=== PATIENT | female | born 1970 | race Asian ===

== ENCOUNTER 2017-02-07 10:10 | Emergency (ER) | payer OTHER ==
[~2017-02-07] VITALS: Ht 162.6 cm; Wt 62.6 kg
[~2017-02-07 10:10] MED LIST: ALBUAER5 INH; ALPR0.2566 PO; AMITRIPTYLIN50 MG OR; AMLO2.5T PO; AROMASIN25 MG PO; CELEXA10 MG OR; CLARITIN10 M1 PO; DICL1GEL2 TOP; HEARTBURN150 MG PO; HYDR-2748 PO; LIDO/PRILOCN1 CRE EX; LISI10TA11 PO; OMEP20CA PO; RANI150T78 PO; TAMOXIFEN20 MG OR; TRAM50TA PO; VENLAFAXINE37.5 ER OR
[2017-02-07 10:38] VITALS: BP 150/85; TEMP 98.4
== END 2017-02-07 10:40 | disposition home or self-care (01) ==
LOC: ED 10:10
DX: K02.9 Dental caries, unspecified (principal); K04.7 Periapical abscess without sinus; K08.89 Other specified disorders of teeth and supporting structures
CPT/HCPCS: 99281

== ENCOUNTER 2019-01-20 10:43 | Outpatient (CLI) | payer OTHER | END 2019-01-20 23:52 | disposition home or self-care (01) | LOC: MAMMO 10:43 | DX: Z85.3 Personal history of malignant neoplasm of breast (principal) ==

== ENCOUNTER 2019-02-02 12:08 | Emergency (ER) | payer OTHER ==
[~2019-02-02] VITALS: Ht 162.6 cm; Wt 74.8 kg
[2019-02-02 12:20] VITALS: TEMP 98.1
[2019-02-02 13:40] VITALS: BP 85/45
== END 2019-02-02 13:53 | disposition home or self-care (01) ==
LOC: ED 12:08
DX: S81.821A Laceration with foreign body, right lower leg, initial encounter (principal); S91.021A Laceration with foreign body, right ankle, initial encounter; L03.115 Cellulitis of right lower limb; F19.129 Other psychoactive substance abuse with intoxication, unspecified; F10.129 Alcohol abuse with intoxication, unspecified
CPT/HCPCS: 87070; 87205; 90471; 90715; 96372; 99283; J0696; J1885

== ENCOUNTER 2019-02-16 11:23 | Emergency (ER) | payer OTHER ==
[~2019-02-16] VITALS: Ht 162.6 cm; Wt 74.8 kg
[2019-02-16 11:28] VITALS: TEMP 101.1
[2019-02-16 13:50] VITALS: BP 132/74
== END 2019-02-16 13:50 | disposition home or self-care (01) ==
LOC: ED 11:23
DX: B34.9 Viral infection, unspecified (principal)
CPT/HCPCS: 87502; 87651; 99283

== ENCOUNTER 2019-12-16 10:08 | Outpatient (CLI) | payer OTHER | END 2019-12-16 10:11 | disposition short-term general hospital (02) | LOC: AMB 10:08 | DX: R07.9 Chest pain, unspecified (principal); F41.9 Anxiety disorder, unspecified | CPT/HCPCS: A0425; A0427 ==

== ENCOUNTER 2019-12-16 10:13 | Emergency (ER) | payer OTHER ==
[~2019-12-16] VITALS: Ht 162.6 cm; Wt 70.8 kg
[2019-12-16 10:13] VITALS: TEMP 97.7
[2019-12-16 10:43] LABS: PLATELET COUNT 216 K/uL (152-353)
[2019-12-16 10:47] LABS: POTASSIUM 2.9 mmol/L (3.6-5.2); SODIUM 140 mmol/L (136-145)
[2019-12-16 18:00] VITALS: BP 120/57
== END 2019-12-16 18:26 | disposition short-term general hospital (02) ==
LOC: ED 10:20
PROVIDERS: Emergency Medicine
DX: I21.4 Non-ST elevation (NSTEMI) myocardial infarction (principal); R79.89 Other specified abnormal findings of blood chemistry; F17.210 Nicotine dependence, cigarettes, uncomplicated
CPT/HCPCS: 80053; 80307; 81000; 82550; 82553; 84484; 85027; 87077; 87086; 87088; 87186; 93005; 99284

== ENCOUNTER 2019-12-16 18:31 | Outpatient (CLI) | payer OTHER | END 2019-12-16 19:12 | disposition short-term general hospital (02) | LOC: AMB 18:31 | DX: R07.9 Chest pain, unspecified (principal); R79.89 Other specified abnormal findings of blood chemistry; I21.4 Non-ST elevation (NSTEMI) myocardial infarction | CPT/HCPCS: A0425; A0427 ==

== ENCOUNTER 2020-08-01 14:29 | Emergency (ER) | payer OTHER ==
[~2020-08-01] VITALS: Ht 162.6 cm; Wt 62.6 kg
[2020-08-01 15:01] LABS: PLATELET COUNT 233 K/uL (152-353)
[2020-08-01 15:09] LABS: POTASSIUM 3.2 mmol/L (3.6-5.2); SODIUM 140 mmol/L (136-145)
[2020-08-01 15:19] LABS: PARTIAL THROMBOPLASTIN TIME 24.5 SECONDS (24.5-33.6)
[2020-08-01 16:25] VITALS: BP 125/81
== END 2020-08-01 16:25 | disposition home or self-care (01) ==
LOC: ED 14:29
PROVIDERS: Hospitalist
DX: R07.89 Other chest pain (principal); J06.9 Acute upper respiratory infection, unspecified; Z20.828 Contact with and (suspected) exposure to other viral communicable diseases; F17.210 Nicotine dependence, cigarettes, uncomplicated
CPT/HCPCS: 36415; 80053; 82550; 82553; 83880; 84484; 85027; 85379; 85610; 85730; 87635; 87651; 93005; 96374; 96375; 99283; 99284; J1100; J1885; U0003

== ENCOUNTER 2020-10-26 15:17 | Outpatient (CLI) | payer OTHER | END 2020-10-26 21:10 | disposition home or self-care (01) | LOC: RAD 15:17 | PROVIDERS: ATTEND Nurse Practitioner Family | DX: J45.909 Unspecified asthma, uncomplicated (principal) ==

== ENCOUNTER 2020-11-30 13:49 | Outpatient (CLI) | payer OTHER | END 2020-11-30 19:44 | disposition home or self-care (01) | LOC: MAMMO 13:49 | PROVIDERS: ATTEND Nurse Practitioner Family | DX: Z00.00 Encounter for general adult medical examination without abnormal findings (principal); Z85.3 Personal history of malignant neoplasm of breast | CPT/HCPCS: G0279 ==

== ENCOUNTER 2020-12-14 16:32 | Outpatient (CLI) | payer OTHER | END 2020-12-14 21:55 | disposition home or self-care (01) | LOC: RAD 16:32 | PROVIDERS: ATTEND Family Medicine | DX: M54.5 Low back pain (principal) ==

== ENCOUNTER 2021-02-04 11:15 | Emergency (ER) | payer OTHER ==
[~2021-02-04] VITALS: Ht 162.6 cm; Wt 68.0 kg
[2021-02-04 11:24] VITALS: TEMP 98.2
[2021-02-04 13:22] LABS: PLATELET COUNT 217 K/uL (152-353)
[2021-02-04 13:36] LABS: POTASSIUM 3.3 mmol/L (3.6-5.2)
[2021-02-04 14:26] VITALS: BP 158/98
== END 2021-02-04 14:38 | disposition home or self-care (01) ==
LOC: ED 11:15
PROVIDERS: Emergency Medicine Emergency Medical Services
DX: R10.2 Pelvic and perineal pain (principal); C80.1 Malignant (primary) neoplasm, unspecified
CPT/HCPCS: 80053; 80307; 84550; 85027; 96372; 99283; J2270; J2550

== ENCOUNTER 2021-05-13 16:05 | Emergency (ER) | payer OTHER ==
[2021-05-22 08:46] LABS: PLATELET COUNT 218 K/uL (152-353)
[2021-05-22 08:47] LABS: POTASSIUM 3.4 mmol/L (3.6-5.2)
== END 2021-05-13 22:10 | disposition home or self-care (01) ==
LOC: ED 16:05
PROVIDERS: Family Medicine
DX: C50.919 Malignant neoplasm of unspecified site of unspecified female breast (principal); C79.51 Secondary malignant neoplasm of bone; N39.0 Urinary tract infection, site not specified; M54.5 Low back pain
CPT/HCPCS: 36415; 80053; 81000; 85027; 87077; 87086; 87088; 87186; 93005; 96372; 99283; J1885

== ENCOUNTER 2021-08-13 23:25 | Emergency (ER) | payer OTHER ==
[~2021-08-13] VITALS: Ht 33 cm; Wt 0.5 kg
[2021-08-14 00:19] LABS: PARTIAL THROMBOPLASTIN TIME 25.4 SECONDS (24.5-33.6); POTASSIUM 3.3 mmol/L (3.6-5.2); SODIUM 138 mmol/L (136-145)
[2021-08-14 00:43] LABS: PLATELET COUNT 238 K/uL (152-353)
[2021-08-14 02:00] VITALS: BP 119/78; TEMP 98.1
== END 2021-08-14 02:00 | disposition home or self-care (01) ==
LOC: ED 23:25
PROVIDERS: Hospitalist
DX: I47.1 Supraventricular tachycardia (principal); C50.919 Malignant neoplasm of unspecified site of unspecified female breast; C79.9 Secondary malignant neoplasm of unspecified site; Z20.822 Contact with and (suspected) exposure to COVID-19
CPT/HCPCS: 36415; 80053; 80320; 82550; 83880; 84484; 85027; 85610; 85730; 87635; 93005; 96360; 96361; 96375; 99284; J0153; J2405; U0003

== ENCOUNTER 2021-10-21 10:50 | Emergency (ER) | payer OTHER ==
[~2021-10-21] VITALS: Ht 154.9 cm; Wt 57.2 kg
[2021-10-21 11:26] LABS: PLATELET COUNT 330 K/uL (152-353)
[2021-10-21 11:55] LABS: PARTIAL THROMBOPLASTIN TIME 24.3 SECONDS (24.5-33.6)
[2021-10-21 15:00] VITALS: BP 115/88
== END 2021-10-21 16:23 | disposition short-term general hospital (02) ==
LOC: ED 10:50
PROVIDERS: Emergency Medicine
DX: R06.09 Other forms of dyspnea (principal); R79.89 Other specified abnormal findings of blood chemistry; E87.6 Hypokalemia; Z11.52 Encounter for screening for COVID-19
CPT/HCPCS: 36415; 80053; 83880; 84484; 85027; 85379; 85610; 85730; 87635; 93005; 96365; 96375; 99285; J1644; J1940; Q9963; U0003

== ENCOUNTER 2022-01-21 12:12 | Emergency (ER) | payer OTHER ==
[~2022-01-21] VITALS: Ht 154.9 cm; Wt 57.2 kg
[2022-01-21 12:15] VITALS: TEMP 98
[2022-01-21 13:15] VITALS: BP 116/81
== END 2022-01-21 13:31 | disposition home or self-care (01) ==
LOC: ED 12:12
DX: R09.02 Hypoxemia (principal)
CPT/HCPCS: 43754; 99282